=== PATIENT | male | born 1995 | race Caucasian/White ===

== ENCOUNTER 2018-01-21 10:25 | Emergency (ER) | payer OTHER ==
[~2018-01-21] VITALS: Ht 182.9 cm; Wt 47.7 kg
[2018-01-21] MEDS ORDERED: PERTUSS(ACELL),DIPH,TET VAC/PF 0.5 ML VIAL IM ONE (12:30)
[2018-01-21 14:22] VITALS: BP 128/84
== END 2018-01-21 14:24 | disposition home or self-care (01) ==
LOC: EMS 10:28
DX: S63.501A Unspecified sprain of right wrist, initial encounter (principal); M25.561 Pain in right knee; R03.0 Elevated blood-pressure reading, without diagnosis of hypertension; F12.90 Cannabis use, unspecified, uncomplicated; F17.210 Nicotine dependence, cigarettes, uncomplicated; V00.131A Fall from skateboard, initial encounter; Y93.51 Activity, roller skating (inline) and skateboarding; Y92.89 Other specified places as the place of occurrence of the external cause; Y99.8 Other external cause status
CPT/HCPCS: 29505; 90471; 90715